=== PATIENT | female | born 1995 | race Caucasian/White ===

== ENCOUNTER 2025-04-17 02:22 | Emergency (ER) | payer MEDICAID, OTHER ==
[~2025-04-17] VITALS: Ht 167.6 cm; Wt 79.4 kg
[2025-04-17] MEDS ORDERED: ONDANSETRON HCL/PF 4 MG/2 ML VIAL ONE (02:59)
[2025-04-17] MEDS ORDERED: MORPHINE SULFATE INJ 4 MG/ML DISP.SYRIN ONE (02:59)
[2025-04-17] MEDS: ONDANSETRON HCL/PF 4 MG/2 ML VIAL IVP ONE (03:17)
[2025-04-17] MEDS: MORPHINE SULFATE INJ 2 MG/ML DISP.SYRIN IV ONE (03:17)
[2025-04-17] MEDS: IV NS 0.9% 1,000 ML BAG IV ONE (03:17)
[2025-04-17 03:22] LABS: PLATELET COUNT (AUTO) 334 K/uL (150-450); RED BLOOD CELL COUNT(AUTO) 4.47 MIL/uL (4.0-5.2); RED CELL DISTRIBUTION WIDTH 14.3 % (11.5-15.0); WHITE BLOOD COUNT (AUTO) 5.9 K/uL (4.3-11.0)
[2025-04-17 03:24] LABS: PREGNANCY TEST URINE QUAL NEGATIVE (NEGATIVE)
[2025-04-17 03:25] LABS: APPEARANCE,URINE CLEAR (CLEAR); BLOOD, URINE 3+ Ery/uL (NEGATIVE); LEUKOCYTE ESTERASE ,URINE 1+ (NEGATIVE); NITRITE, URINE NEGATIVE (NEGATIVE); UGLUCOSE NEGATIVE (NEGATIVE)
[2025-04-17 03:28] LABS: ADD URINE CULTURE YES; SQUAMOUS EPITHELIAL CELL,UR Few /HPF (None Seen)
[2025-04-17 03:32] LABS: INR 1.02 (0.91-1.10)
[2025-04-17 03:37] LABS: ASPARTATE AMINOTRANSFERASE 55.0 U/L (15-37); CALCIUM, SERUM 8.5 mg/dL (8.5-10.1); CREATININE 0.7 mg/dL (0.6-1.3); SODIUM SERUM 137.0 mmol/L (136-145); TOTAL PROTEIN, SERUM 7.8 g/dL (6.4-8.2); UREA NITROGEN, BLOOD 14.0 mg/dL (7-18)
[2025-04-17] MEDS ORDERED: NITROFURANTOIN/MONOHYDRATE MACROCRYSTALS 100 MG CAPSULE ONE (04:15)
[2025-04-17] MEDS: NITROFURANTOIN/MONOHYDRATE MACROCRYSTALS 100 MG CAPSULE PO ONE (04:18)
[2025-04-17] MEDS ORDERED: NITR100C6 PO (04:27)
[2025-04-17 04:54] VITALS: BP 115/69; TEMP 97.9; O2SAT 98
== END 2025-04-17 04:55 | disposition home or self-care (01) ==
LOC: ER 02:28
DX: K80.70 Calculus of gallbladder and bile duct without cholecystitis without obstruction (principal); N39.0 Urinary tract infection, site not specified
CPT/HCPCS: 99285; 96374; 76705; 96361; 96375; 85025; 80048; 87086; 83690; 80076; 84703; 81001; 36415; 85730; J2270; J2405

== ENCOUNTER 2025-05-26 01:38 | Emergency (ER) | payer MEDICAID ==
[~2025-05-26] VITALS: Ht 165.1 cm; Wt 70.3 kg
[~2025-05-26 01:38] MED LIST: NITR100C6 PO
[2025-05-26] MEDS ORDERED: HYDROMORPHONE 1 MG/1 ML DISP.SYRIN ONE (03:00)
[2025-05-26] MEDS ORDERED: ONDANSETRON HCL/PF 4 MG/2 ML VIAL ONE (03:00)
[2025-05-26 03:13] LABS: APPEARANCE,URINE SLIGHTLY CLOUDY (CLEAR); BLOOD, URINE NEGATIVE Ery/uL (NEGATIVE); LEUKOCYTE ESTERASE ,URINE TRACE (NEGATIVE); NITRITE, URINE NEGATIVE (NEGATIVE); UGLUCOSE NEGATIVE (NEGATIVE)
[2025-05-26 03:14] LABS: PREGNANCY TEST URINE QUAL NEGATIVE (NEGATIVE)
[2025-05-26] MEDS: HYDROMORPHONE INJ 2 MG/ML DISP.SYRIN IV ONE (03:18)
[2025-05-26] MEDS: ONDANSETRON HCL/PF 4 MG/2 ML VIAL IVP ONE (03:19)
[2025-05-26] MEDS: IV NS 0.9% 1,000 ML BAG IV ONE (03:19)
[2025-05-26 03:29] LABS: PLATELET COUNT (AUTO) 238 K/uL (150-450); RED BLOOD CELL COUNT(AUTO) 4.37 MIL/uL (4.0-5.2); RED CELL DISTRIBUTION WIDTH 15.2 % (11.5-15.0); WHITE BLOOD COUNT (AUTO) 5.7 K/uL (4.3-11.0)
[2025-05-26 03:30] LABS: CALCIUM, SERUM 9.1 mg/dL (8.5-10.1); CREATININE 0.7 mg/dL (0.6-1.3); SODIUM SERUM 140.0 mmol/L (136-145); UREA NITROGEN, BLOOD 21.0 mg/dL (7-18)
[2025-05-26 03:32] LABS: ADD URINE CULTURE YES; SQUAMOUS EPITHELIAL CELL,UR Many /HPF (None Seen); URINE AMORPHOUS PHOSPHATES Many /HPF (None Seen)
[2025-05-26 03:35] LABS: ASPARTATE AMINOTRANSFERASE 56.0 U/L (15-37); TOTAL PROTEIN, SERUM 7.6 g/dL (6.4-8.2)
[2025-05-26] MEDS ORDERED: CEPHALEXIN MONOHYDRATE 500 MG CAPSULE PO ONE (04:17)
[2025-05-26] MEDS: CEPHALEXIN MONOHYDRATE 500 MG CAPSULE PO ONE (04:24)
[2025-05-26] MEDS ORDERED: IBUP-1490 PO (04:48)
[2025-05-26] MEDS ORDERED: CEPH-570 PO (04:48)
[2025-05-26 05:47] VITALS: BP 99/60; TEMP 98; O2SAT 95
== END 2025-05-26 05:47 | disposition home or self-care (01) ==
LOC: ER 01:43
DX: K80.70 Calculus of gallbladder and bile duct without cholecystitis without obstruction (principal); N39.0 Urinary tract infection, site not specified
CPT/HCPCS: 99285; 96374; 76705; 96361; 96375; 93005; 85025; 80048; 87086; 83690; 80076; 84703; 81001; 36415; J2405; J1171